=== PATIENT | female | born 1975 | race Caucasian/White ===

== ENCOUNTER → 2021-06-21 | Outpatient (CLI) | payer MEDICAID, SELFPAY | END | disposition home or self-care (01) | LOC: LABSPEC 15:12 | PROVIDERS: PCP Family Medicine; Referring Provider Physician Assistant; Visit Provider Physician Assistant | DX: Z20.822 Contact with and (suspected) exposure to COVID-19 (principal) | CPT/HCPCS: 87635; U0005; U0003 ==

== ENCOUNTER 2022-03-19 22:33 | Emergency (ER) | payer MEDICAID, SELFPAY ==
[2022-03-19 22:34] VITALS: BP 154/96; PULSE 80; RESP 16; TEMP 35.7; O2SAT 98; BMI 40.3
--- NOTE | 2022-03-19 22:48 | EX.ED.UPPERE ---
HPI History of Present Illness Chief Complaint: Wound Narrative Narrative: 46-year-old female presenting with left index finger pain. She states he was trying to drill a screw into the wall and inadvertently missed the screw and put the drill to her finger. She was using a screw bit not a drill bit. He has a mild superficial wound to the index finger. There is on the fat pad. Bleeding is controlled. Last tetanus 8 years ago. Patient took nothing for pain prior to arrival. [id number]. PFSH PFS Medical History Encounter for screening for COVID-19 Home Medications sertraline 100 mg tablet 1 ea PO DAILY 06/21/21 [History Last Taken Unknown] Allergy/AdvReac Type Severity Reaction Status Date / Time Sulfa (Sulfonamide Allergy Hives Verified 03/19/22 22:34 Antibiotics) Latex, Natural Rubber AdvReac Rash Verified 03/19/22 22:34 Surgical History Hx of cholecystectomy Social History Smoking Status: Never smoker ROS ROS ED Constitutional Constitutional ED: Denies chills or fever(s) Eyes Eyes: Denies change in vision ENT ENT ED: Denies rhinorrhea or sore throat Cardiovascular Cardiovascular: Denies chest pain or palpitations Respiratory/Chest Respiratory/Chest: Denies cough or dyspnea Gastrointestinal Gastrointestinal: Denies abdominal pain or constipation Genitourinary Genitourinary ED: Denies dysuria or hematuria Musculoskeletal Musculoskeletal: Reports other Details: Left index finger pain ; Denies back pain or myalgias Integumentary Reports other Details: Superficial abrasion to the fat pad of the left index finger. Neurologic Neurologic: Denies headache(s) or paresthesias Psychiatric Psychiatric: Denies anxiety or depression EXAM Physical Exam Const Vital Signs: 03/19/22 22:34 Temperature 96.2 F L Temperature Source Temporal Pulse Rate 80 Respiratory Rate 16 Blood Pressure 154/96 H Blood Pressure Mean 115 Pulse Ox 98 Oxygen Delivery Method Room Air Positive well nourished General Appearance ED: NAD HEENT Reports moist mucous membranes normocephalic and atraumatic Eyes PERRL and EOMs intact bilaterally Resp normal respiratory effort and clear to auscultation bilaterally Cardio regular rate and regular rhythm Neuro CN's II-XII intact bilaterally Sensorium / Orientation: alert Motor Exam: strength 5/5 throughout Psych mental status grossly normal Skin Skin Narrative: Superficial abrasion to the fat pad of the distal end of the index finger on the left. No bony tenderness. Full range of motion. Left hand neurovascular intact prescription for all 5 fingers. No active bleeding. MDM MDM MDM Narrative Medical decision making narrative: Patient with superficial abrasion over the left index finger. No active bleeding. Patient concerned she might of injured something deeper and I obtained an x-ray of the left index finger which on my interpretation is no acute fracture, foreign body. Wound was cleaned and dressed. Patient to monitor for signs of infection. She will follow-up with her PCP to ensure resolution. Impression: 1. Left index finger abrasion 2. Left index finger contusion Lab Data Attestation: I reviewed the patient's lab results. Discharge Plan Triage Chief Complaint: Wound ED Provider: Kenny Odonnell Dx/Rx/DC Orders Instructions: ED Puncture Wound (General) Prescriptions: No Action sertraline 100 mg tablet 1 ea PO DAILY Primary Care Provider: Jules Simms Referrals: Miguel Fairbanks MD [NON-STAFF] - Disposition Disposition: Home, Self Care
--- NOTE | 2022-03-19 22:49 | RAD_ITS ---
STUDY: X-RAY - LEFT HAND, ATTENTION SECOND FINGER REASON FOR EXAM: Female, 46 years old. pain TECHNIQUE: 3 view(s) of the finger were obtained. COMPARISON: None. FINDINGS: Normal metacarpal head. Normal metacarpophalangeal joint. Normal proximal phalanx. Normal middle phalanx. Normal distal phalanx. Normal proximal interphalangeal joint. Normal distal interphalangeal joint. RAD/Finger(s) Min 2 Views IMPRESSION: Normal x-ray examination of the finger. Electronically Signed: Reji Garrison DO at 23:05 EDT ,
[2022-03-19] MEDS: Naproxen 500 MG Tablet PO (22:52)
[2022-03-19] MEDS: Diphth,Pertuss(Acell),Tet Vac 0.5 ML Vial IM (22:52)
== END 2022-03-19 23:35 | disposition home or self-care (01) ==
PROVIDERS: Emergency Provider Student in an Organized Health Care Education/Training Program; PCP Family Medicine; Visit Provider Student in an Organized Health Care Education/Training Program
DX: S60.411A Abrasion of left index finger, initial encounter (principal); S60.022A Contusion of left index finger without damage to nail, initial encounter; Z79.899 Other long term (current) drug therapy; Z23 Encounter for immunization; X58.XXXA Exposure to other specified factors, initial encounter
CPT/HCPCS: 73140; 90471; 90715; 99283